=== PATIENT | female | born 1960 | race American Indian/Alaskan Native ===

== ENCOUNTER 2017-01-16 23:18 | Emergency (ER) | payer MEDICAID ==
[2017-01-16 23:12] LABS: CHLORIDE,CL 94 mmol/L (101-111); SODIUM,NA 130 mmol/L (135-145)
[~2017-01-16 23:18] MED LIST: LORazepam 1 MG Tab PO ONE
--- NOTE | 2017-01-16 23:19 | EDM.PDOC ---
ED HPI GENERAL MEDICAL PROBLEM - General Chief Complaint: Chest Pain Stated Complaint: AMBULANCE Time Seen by Provider: 01/16/17 23:00 Source of Information: Reports: Patient History Limitations: Reports: No Limitations - History of Present Illness INITIAL COMMENTS - FREE TEXT/NARRATIVE: This 56 yo female patient was brought to the ED by [facility] due to a 2 day history of chest pain. The patient reports her pain is no longer present, but she has been worrying about it since yesterday. EMS reports that the patient has been coughing up green phlegm over the past several days. The patient reports she has not been able to sleep due to worrying about her chest pain. The patient reports no history of cardiac problems. The patient denies any drug or alcohol use. Onset Date: 01/15/17 Duration: Waxing/Waning Location: Reports: Chest Quality: Reports: Ache, Dull Severity: Moderate Improves with: Reports: None Worsens with: Reports: Medication Associated Symptoms: Reports: Cough Anterior Chest Pain Score (Numeric/FACES): 8 - Related Data Allergies Allergy/AdvReac Type Severity Reaction Status Date / Time No Known Allergies Allergy Verified 01/16/17 22:50 Home Meds: Home Meds . 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" - Past Surgical History GI Surgical History: Reports: Cholecystectomy Social & Family History - Family History Family Medical History: Noncontributory - Tobacco Use Smoking Status *Q: Former Smoker Years of Tobacco use: 2 Packs/Tins Daily: 0.1 Used Tobacco, but Quit: Yes Month Tobacco Last Used: sep Second Hand Smoke Exposure: No - Alcohol Use Days Per Week of Alcohol Use: 2 Number of Drinks Per Day: 6 Total Drinks Per Week: 12 - Recreational Drug Use Recreational Drug Use: No Drug Use in Last 12 Months: No - Living Situation & Occupation Living situation: Reports: with Family Occupation: Unemployed ED ROS GENERAL - Review of Systems Review Of Systems: ROS reveals no pertinent complaints other than HPI. ED EXAM, GENERAL - Physical Exam Exam: See Below Exam Limited By: No Limitations General Appearance: Alert, WD/WN, Anxious, Moderate Distress, Thin Eye Exam: Bilateral Eye: EOMI, Normal Inspection, PERRL Ears: Normal External Exam, Normal Canal, Hearing Grossly Normal, Normal TMs Nose: Normal Inspection, Normal Mucosa, No Blood Throat/Mouth: Normal Lips, Normal Gums, Normal Oropharynx, Normal Voice, No Airway Compromise, Other (multiple dental caries) Head: Atraumatic, Normocephalic Neck: Normal Inspection, Supple, Non-Tender, Full Range of Motion Respiratory/Chest: No Respiratory Distress, Lungs Clear, Normal Breath Sounds, No Accessory Muscle Use, Chest Non-Tender Cardiovascular: Normal Peripheral Pulses, Regular Rate, Rhythm, No Edema, No Gallop, No JVD, No Murmur, No Rub GI/Abdominal: Normal Bowel Sounds, Soft, Non-Tender, No Organomegaly, No Distention, No Abnormal Bruit, No Mass (Female) Exam: Deferred Rectal (Female) Exam: Deferred Back Exam: Normal Inspection, Full Range of Motion, NT Extremities: Normal Inspection, Normal Range of Motion, Non-Tender, Normal Capillary Refill, No Pedal Edema Neurological: Alert, Oriented, CN II-XII Intact, Normal Cognition, Normal Gait, Normal Reflexes, No Motor/Sensory Deficits Psychiatric: Normal Affect, Normal Mood Skin Exam: Warm, Dry, Intact, Normal Color, No Rash Lymphatic: No Adenopathy Course - Vital Signs Last Recorded V/S: Last Vital Signs Temp 36.8 C 01/16/17 23:19 Pulse 90 01/16/17 23:19 Resp 13 01/16/17 23:19 BP 142/80 H 01/16/17 23:25 Pulse Ox 100 01/16/17 23:19 - Orders/Labs/Meds Orders: Active Orders 24 hr Category Date Time Status EKG Documentation Completion [RC] URGENT Care 01/16/17 22:36 Ordered Labs: Laboratory Tests 01/16/17 01/16/17 01/16/17 Range/Units 22:47 22:47 22:55 WBC 4.6 L (5.0-10.0) 10^3/uL RBC 4.87 (4.2-5.4) 10^6/uL Hgb 15.1 (12.0-16.0) g/dL Hct 43.9 (37.0-47.0) % MCV 90.1 (80-100) fL MCH 31.0 (27.0-34.0) pg MCHC 34.4 (33.0-35.0) g/dL Plt Count 58 L (150-450) 10^3/uL Neut % (Auto) 75.0 (42.2-75.2) % Lymph % (Auto) 8.9 L (20.5-50.1) % [place] % (Auto) 15.2 H (2-8) % Eos % (Auto) 0.7 L (1.0-3.0) % Baso % (Auto) 0.2 (0.0-1.0) % Sodium 130 L (135-145) mmol/L Potassium 3.5 L (3.6-5.0) mmol/L Chloride 94 L (101-111) mmol/L Carbon Dioxide 25.0 (21.0-31.0) mmol/L Anion Gap 14.5 BUN 9 (7-18) mg/dL Creatinine 0.5 L (0.6-1.3) mg/dL Est Cr Clr Drug Dosing 101.73 mL/min Estimated GFR (MDRD) > 60 BUN/Creatinine Ratio 18.00 Glucose 134 H (74-105) mg/dL Calcium 9.4 (8.4-10.2) mg/dl Total Bilirubin 0.9 (0.2-1.0) mg/dL AST 92 H (10-42) IU/L ALT 94 H (10-60) IU/L Alkaline Phosphatase 85 (42-121) IU/L Troponin I < 0.02 (0.00-0.02) ng/ml Total Protein 7.7 (6.7-8.2) g/dl Albumin 4.4 (3.2-5.5) g/dl Globulin 3.3 Albumin/Globulin Ratio 1.33 Urine Color Yellow (YELLOW) Urine Appearance Slightly cloudy (CLEAR) Urine pH 7.0 (5.0-9.0) Ur Specific [place] 1.015 (1.005-1.030) Urine Protein 30 H (NEGATIVE) Urine Glucose (UA) Negative (NEGATIVE) Urine Ketones 15 H (NEGATIVE) Urine Occult Blood Moderate H (NEGATIVE) Urine Nitrite Negative (NEGATIVE) Urine Bilirubin Small H (NEGATIVE) Urine Urobilinogen 1.0 (0.2-1.0) mg/dL Ur Leukocyte Esterase Moderate H (NEGATIVE) Urine RBC 10-20 H /HPF Urine WBC >100 H (0-5/HPF) /HPF Ur Epithelial Cells Many H /HPF Urine Bacteria Few (0-FEW/HPF) /HPF Urine Mucus Few H /LPF Urine Other See note Meds: Medications Discontinued Medications Generic Name Dose Route Start Last Admin Trade Name Freq PRN Reason Stop Dose Admin Amoxicillin/Clavulanate Potassium 1 tab 01/16/17 23:28 Augmentin 500 Mg\\125 Mg PO 01/16/17 23:29 ONETIME ONE Lorazepam 1 mg 01/16/17 23:14 01/16/17 23:19 Ativan PO 01/16/17 23:15 1 mg ONETIME ONE Administration Departure - Departure Time of Disposition: 23:30 Disposition: Home, Self-Care 01 Condition: Fair Clinical Impression: Anxiety UTI (urinary tract infection) Qualifiers: Urinary tract infection type: site unspecified Hematuria presence: with hematuria Qualified Code(s): N39.0 - Urinary tract infection, site not specified ; R31.9 - Hematuria, unspecified; R31.9 - Hematuria, unspecified URI (upper respiratory infection) Qualifiers: URI type: unspecified URI Qualified Code(s): J06.9 - Acute upper respiratory infection, unspecified Instructions: Panic Attacks, Upper Respiratory Infection, Adult, [id number], Urinary Tract Infection, Adult, [id number] Forms: ED Department Discharge Care Plan Goals: The patient was advised of the examination, lab, x-ray and EKG results during the visit. The patient was given an oral dose of Ativan and Augmentin while in the ED. The patient was discharged with a script for Augmentin (500/125) to take 1 by mouth 2 times per day for 10 days. If the patient has any additional symptoms or concerns, the patient should follow-up with her primary care facility or return to the emergency department. - My Orders Last 24 Hours: My Active Orders 01/16/17 22:36 EKG Documentation Completion [RC] URGENT - Assessment/Plan Last 24 Hours: My Active Orders 01/16/17 22:36 EKG Documentation Completion [RC] URGENT
[2017-01-16 23:26] VITALS: BP 142/80
[2017-01-16] MEDS ORDERED: Amoxicillin/Clavulanate K 500-125 MG Tab PO ONE (23:28)
--- NOTE | 2017-01-18 11:50 | EKG ---
01/16/2017- JONATHAN WASSERMAN - FINDINGS: EKG, per my reading, shows sinus rhythm at the rate of 94 with a left anterior fascicular block. [facility] /[id number]
== END 2017-01-16 23:41 | disposition home or self-care (01) ==
LOC: DL.ED 23:18
DX: F41.9 Anxiety disorder, unspecified (principal); N39.0 Urinary tract infection, site not specified; R31.9 Hematuria, unspecified; J06.9 Acute upper respiratory infection, unspecified; Z87.891 Personal history of nicotine dependence
CPT/HCPCS: 36415; 71020; 80053; 81001; 84484; 85025; 93005; 99285; A9270

== ENCOUNTER 2017-01-18 12:01 | Emergency (ER) | payer MEDICAID ==
[2017-01-18 12:06] VITALS: BP 100/75
--- NOTE | 2017-01-18 12:16 | EDM.PDOCBH ---
ED HPI GENERAL MEDICAL PROBLEM - General Chief Complaint: Neuro Symptoms/Deficits Stated Complaint: IN BY AMBULANCE Time Seen by Provider: 01/18/17 12:15 Source of Information: Reports: Patient, EMS, Old Records, RN, RN Notes Reviewed , Other (Nurse Carbajal @ [facility], Meenakshi Banerjee @ [facility] ([phone])) History Limitations: Reports: Altered Mental Status (apparent active mental illness) - History of Present Illness INITIAL COMMENTS - FREE TEXT/NARRATIVE: Arrives from home by ambulance with c/o "unable to sleep for 2 or 3 nights". Pt states she was seen here a few days ago because she "was scared at home and had some chest pain". At that ER visit she received one dose of Ativan 1mg po, and she thinks that the Ativan is having a strange effect on her that it never has in past. She states that it is causing her to have really bad fear which makes it impossible to sleep. She states that strange men keep popping their heads out peeking at her in her house, and also shadows in her house have been moving into shapes and scaring her. She denies any auditory hallucinations and states that none of the peeking heads have spoke, and she hears no other voices. She denies suicidal thoughts or plan. She denies any recent use of alcohol or drugs. She has not been following with anyone for medical or psychiatric care, or with behavioral health. She currently has no active prescriptions. Onset: Unknown/Unsure Duration: Chronic Improves with: Reports: None Worsens with: Reports: None Associated Symptoms: Reports: No Other Symptoms - Related Data Allergies Allergy/AdvReac Type Severity Reaction Status Date / Time No Known Allergies Allergy Verified 01/18/17 12:03 Home Meds: Home Meds . 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" - Past Surgical History GI Surgical History: Reports: Cholecystectomy Social & Family History - Family History Family Medical History: Noncontributory - Tobacco Use Smoking Status *Q: Never Smoker Years of Tobacco use: 2 Packs/Tins Daily: 0.1 Used Tobacco, but Quit: Yes Month Tobacco Last Used: sep Second Hand Smoke Exposure: No - Caffeine Use Caffeine Use: Reports: Coffee - Alcohol Use Days Per Week of Alcohol Use: 2 Number of Drinks Per Day: 6 Total Drinks Per Week: 12 - Recreational Drug Use Recreational Drug Use: No Drug Use in Last 12 Months: No - Living Situation & Occupation Living situation: Reports: Single, with Family Occupation: Unemployed ED ROS GENERAL - Review of Systems Review Of Systems: ROS reveals no pertinent complaints other than HPI. ED EXAM, BEHAVIORAL HEALTH - Physical Exam Exam: See Below Exam Limited By: No Limitations General Appearance: Alert, WD/WN, No Apparent Distress, Anxious Eye Exam: Bilateral Eye: EOMI, Normal Inspection, PERRL Ears: Normal External Exam, Hearing Grossly Normal Nose: Normal Inspection, Normal Mucosa, No Blood Throat/Mouth: Normal Lips, Normal Oropharynx, Normal Voice, No Airway Compromise , Other (chronically poor dental condition with extensive decay and several missing teeth) Head: Atraumatic, Normocephalic Neck: Normal Inspection Respiratory/Chest: No Respiratory Distress, Lungs Clear, Normal Breath Sounds, No Accessory Muscle Use, Chest Non-Tender Cardiovascular: Normal Peripheral Pulses, Regular Rate, Rhythm, No Edema, No Gallop, No JVD, No Murmur, No Rub GI/Abdominal: Normal Bowel Sounds, Soft, Non-Tender, No Distention, No Abnormal Bruit (Female) Exam: Deferred Rectal (Female) Exam: Deferred Back Exam: Normal Inspection Extremities: Normal Inspection Neurological: Alert, CN II-XII Intact, Normal Gait, No Motor/Sensory Deficits, Other (Oriented to person, place, and month) Psychiatric: Flat Affect, Visual Hallucinations. No: Homicidal Thoughts, Phobic , Christianity Delusions, Suicidal Thoughts, Auditory Hallucinations, Grandiose Thoughts, Paranoid Thoughts Skin Exam: Warm, Dry, Intact, Normal color, No rash COURSE, BEHAVIORAL HEALTH COMP - Course Vital Signs: Last Vital Signs Temp 36.6 C 01/18/17 12:03 Pulse 97 01/18/17 12:03 Resp 16 01/18/17 12:03 BP 100/75 01/18/17 12:03 Pulse Ox 98 01/18/17 12:03 Orders, Labs, Meds: Active Orders 24 hr Category Date Time Status QUEtiapine [SEROquel] Med 01/18/17 14:47 Once 25 mg PO ONETIME ONE Laboratory Tests 01/18/17 01/18/17 01/18/17 Range/Units 12:22 12:22 12:32 WBC 7.5 (5.0-10.0) 10^3/uL RBC 5.37 (4.2-5.4) 10^6/uL Hgb 16.4 H (12.0-16.0) g/dL Hct 48.1 H (37.0-47.0) % MCV 89.6 (80-100) fL MCH 30.5 (27.0-34.0) pg MCHC 34.1 (33.0-35.0) g/dL Plt Count 88 L (150-450) 10^3/uL Neut % (Auto) 70.5 (42.2-75.2) % Lymph % (Auto) 12.1 L (20.5-50.1) % [place] % (Auto) 16.6 H (2-8) % Eos % (Auto) 0.5 L (1.0-3.0) % Baso % (Auto) 0.3 (0.0-1.0) % Sodium (135-145) mmol/L Potassium (3.6-5.0) mmol/L Chloride (101-111) mmol/L Carbon Dioxide (21.0-31.0) mmol/L Anion Gap BUN (7-18) mg/dL Creatinine (0.6-1.3) mg/dL Est Cr Clr Drug Dosing mL/min Estimated GFR (MDRD) BUN/Creatinine Ratio Glucose (74-105) mg/dL Calcium (8.4-10.2) mg/dl Magnesium (1.8-2.5) mg/dL Total Bilirubin (0.2-1.0) mg/dL AST (10-42) IU/L ALT (10-60) IU/L Alkaline Phosphatase (42-121) IU/L Total Protein (6.7-8.2) g/dl Albumin (3.2-5.5) g/dl Globulin Albumin/Globulin Ratio TSH, Ultra Sensitive (0.45-5.33) uIu/mL Urine Color Yellow (YELLOW) Urine Appearance Clear (CLEAR) Urine pH 7.0 (5.0-9.0) Ur Specific [place] <= 1.005 (1.005-1.030) Urine Protein Negative (NEGATIVE) Urine Glucose (UA) Negative (NEGATIVE) Urine Ketones Negative (NEGATIVE) Urine Occult Blood Moderate H (NEGATIVE) Urine Nitrite Negative (NEGATIVE) Urine Bilirubin Negative (NEGATIVE) Urine Urobilinogen 1.0 (0.2-1.0) mg/dL Ur Leukocyte Esterase Small H (NEGATIVE) Urine RBC 0-5 /HPF Urine WBC 5-10 H (0-5/HPF) /HPF Ur Epithelial Cells Few /HPF Urine Bacteria Few (0-FEW/HPF) /HPF Urine Mucus Few H /LPF Salicylates Urine Opiates Screen Negative (NEGATIVE) Ur Oxycodone Screen Negative (NEGATIVE) Urine Methadone Screen Negative (NEGATIVE) Acetaminophen Ur Barbiturates Screen Negative (NEGATIVE) U Tricyclic Antidepress Negative (NEGATIVE) Ur Phencyclidine Scrn Negative (NEGATIVE) Ur Amphetamine Screen Negative (NEGATIVE) U Methamphetamines Scrn Negative (NEGATIVE) Urine MDMA Screen Negative (NEGATIVE) U Benzodiazepines Scrn Positive H (NEGATIVE) Urine Cocaine Screen Negative (NEGATIVE) U Marijuana (THC) Screen Negative (NEGATIVE) Ethyl Alcohol mg/dL 01/18/17 01/18/17 Range/Units 12:32 12:32 WBC (5.0-10.0) 10^3/uL RBC (4.2-5.4) 10^6/uL Hgb (12.0-16.0) g/dL Hct (37.0-47.0) % MCV (80-100) fL MCH (27.0-34.0) pg MCHC (33.0-35.0) g/dL Plt Count (150-450) 10^3/uL Neut % (Auto) (42.2-75.2) % Lymph % (Auto) (20.5-50.1) % [place] % (Auto) (2-8) % Eos % (Auto) (1.0-3.0) % Baso % (Auto) (0.0-1.0) % Sodium 132 L (135-145) mmol/L Potassium 3.1 L (3.6-5.0) mmol/L Chloride 98 L (101-111) mmol/L Carbon Dioxide 20.0 L (21.0-31.0) mmol/L Anion Gap 17.1 BUN 10 (7-18) mg/dL Creatinine 0.7 (0.6-1.3) mg/dL Est Cr Clr Drug Dosing 72.66 mL/min Estimated GFR (MDRD) > 60 BUN/Creatinine Ratio 14.28 Glucose 115 H (74-105) mg/dL Calcium 9.5 (8.4-10.2) mg/dl Magnesium 1.6 L (1.8-2.5) mg/dL Total Bilirubin 1.3 H (0.2-1.0) mg/dL AST 92 H (10-42) IU/L ALT 84 H (10-60) IU/L Alkaline Phosphatase 81 (42-121) IU/L Total Protein 7.7 (6.7-8.2) g/dl Albumin 4.4 (3.2-5.5) g/dl Globulin 3.3 Albumin/Globulin Ratio 1.33 TSH, Ultra Sensitive 4.71 (0.45-5.33) uIu/mL Urine Color (YELLOW) Urine Appearance (CLEAR) Urine pH (5.0-9.0) Ur Specific [place] (1.005-1.030) Urine Protein (NEGATIVE) Urine Glucose (UA) (NEGATIVE) Urine Ketones (NEGATIVE) Urine Occult Blood (NEGATIVE) Urine Nitrite (NEGATIVE) Urine Bilirubin (NEGATIVE) Urine Urobilinogen (0.2-1.0) mg/dL Ur Leukocyte Esterase (NEGATIVE) Urine RBC /HPF Urine WBC (0-5/HPF) /HPF Ur Epithelial Cells /HPF Urine Bacteria (0-FEW/HPF) /HPF Urine Mucus /LPF Salicylates < 4 Urine Opiates Screen (NEGATIVE) Ur Oxycodone Screen (NEGATIVE) Urine Methadone Screen (NEGATIVE) Acetaminophen < 10 Ur Barbiturates Screen (NEGATIVE) U Tricyclic Antidepress (NEGATIVE) Ur Phencyclidine Scrn (NEGATIVE) Ur Amphetamine Screen (NEGATIVE) U Methamphetamines Scrn (NEGATIVE) Urine MDMA Screen (NEGATIVE) U Benzodiazepines Scrn (NEGATIVE) Urine Cocaine Screen (NEGATIVE) U Marijuana (THC) Screen (NEGATIVE) Ethyl Alcohol < 5 mg/dL Re-Assessment/Re-Exam: I contacted [facility] and spoke to Raven, a nurse, who was able to confirm that the pt has not been established with a medical provider for over two years, and has no active prescriptions. I contacted Meenakshi Chriss at [facility]. She was able to confirm that the pt had been referred to their clinic several times in the past by other agencies or clinics, but the pt never attended any of the intake appointments, and all efforts to reach out to the pt failed because the phone numbers given for the pt were always incorrect or disconnected, and she was never residing at the addresses listed. Medical Clearance: 01/18/17 13:00 Pt medically clear for mental health evaluation. Discharge vs Psych Eval/Treatment:: 01/18/17 14:48 Mitzi Temple from [facility] evaluates pt in ER room #4 and also interviews 2 of pt's sisters via phone. Pt in not felt to be a danger to herself of others, and her sister is willing to come get her from the ER and ensure that she follows up tomorrow for intake at the [facility]. Pt will pt started on Seroquel 25mg qAM and 50mg qHS at this time until medical management can begin later this week. Departure - Departure Time of Disposition: 14:51 Disposition: Home, Self-Care 01 Condition: Fair Clinical Impression: Anxiety, Psychotic disorder Insomnia Qualifiers: Insomnia type: psychophysiologic Qualified Code(s): F51.04 - Psychophysiologic insomnia - Discharge Information Instructions: Insomnia, Psychosis Forms: ED Department Discharge Additional Instructions: Rx: Seroquel 25mg: Take one tablet every morning and two tablets every night at bedtime. Follow up tomorrow for intake at the [facility]: [phone] - My Orders Last 24 Hours: My Active Orders 01/18/17 14:47 QUEtiapine [SEROquel] 25 mg PO ONETIME ONE - Assessment/Plan Last 24 Hours: My Active Orders 01/18/17 14:47 QUEtiapine [SEROquel] 25 mg PO ONETIME ONE
[2017-01-18 12:58] LABS: CHLORIDE,CL 98 mmol/L (101-111); SODIUM,NA 132 mmol/L (135-145)
[2017-01-18 13:00] LABS: ACETAMINOPHEN < 10
[2017-01-18] MEDS ORDERED: QUEtiapine 25 MG Tab PO ONE (14:47)
== END 2017-01-18 15:12 | disposition home or self-care (01) ==
LOC: DL.ED 12:01
DX: F29 Unspecified psychosis not due to a substance or known physiological condition (principal); F41.9 Anxiety disorder, unspecified; F51.04 Psychophysiologic insomnia; K02.9 Dental caries, unspecified; Z87.891 Personal history of nicotine dependence
CPT/HCPCS: 36415; 80053; 80305; 81001; 83735; 84443; 85025; 99285; G0480

== ENCOUNTER 2017-03-24 15:35 | Emergency (ER) | payer MEDICAID | END 2017-03-24 17:15 | disposition left against medical advice (07) | LOC: DL.ED 15:35 | DX: Z53.21 Procedure and treatment not carried out due to patient leaving prior to being seen by health care provider (principal) ==

== ENCOUNTER 2017-07-24 06:01 | Emergency (ER) | payer MEDICAID ==
[2017-07-24 06:24] VITALS: BP 150/93
--- NOTE | 2017-07-24 06:50 | EDM.PDOCBH ---
<AleshaJabari Chavis - Last Filed: 07/24/17 06:40> ED HPI GENERAL MEDICAL PROBLEM - General Chief Complaint: Behavioral/Psych Stated Complaint: IN BY AMBULANCE Time Seen by Provider: 07/24/17 06:35 Source of Information: Reports: Patient History Limitations: Reports: No Limitations - History of Present Illness INITIAL COMMENTS - FREE TEXT/NARRATIVE: This 57 yo female patient reports to the ED due to 1) not sleeping for the past several days, 2) not having any medications for sleep, 3) feeling very anxious and 4) having auditory hallucinations. The patient reports that she has not followed up with the [facility] since May. The patient reports that she returned her Trazadone and was supposed to have a dose change, but they (the [facility] could not call her because she does not have a phone. The patient reports that she has not called them, but did not have a reason why. The patient reports that she called the ambulance today, because the voices were getting louder. The patient reports the voices were telling her that they were going to harm her. Onset: Gradual Duration: Day(s):, Constant, Getting Worse Location: Reports: Generalized Quality: Reports: Other Severity: Moderate Improves with: Reports: None Worsens with: Reports: None Context: Reports: Other Associated Symptoms: Reports: No Other Symptoms - Related Data Allergies Allergy/AdvReac Type Severity Reaction Status Date / Time No Known Allergies Allergy Verified 07/24/17 06:24 Home Meds: Home Meds Naproxen 250 mg PO BID 07/24/17 [History] traZODone HCl [Trazodone HCl] 25 mg PO DAILY 07/24/17 [History] Past Medical History - Past Health History Medical/Surgical History: Denies Medical/Surgical History HEENT History: Reports: Impaired Vision Other HEENT History: multiple broken and missing teeth SCALE AGENT History: Reports: Musculoskeletal History: Reports: Arthritis Psychiatric History: Reports: Anxiety, Depression, Other (See Below) Other Psychiatric History: insomnia Other Endocrine/Metabolic History: said "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" - Past Surgical History GI Surgical History: Reports: Cholecystectomy Social & Family History - Family History Family Medical History: Noncontributory - Tobacco Use Smoking Status *Q: Current Some Day Smoker Years of Tobacco use: 35 Packs/Tins Daily: 7 - Caffeine Use Caffeine Use: Reports: Coffee - Alcohol Use Date of Last Drink: 07/09/17 - Recreational Drug Use Recreational Drug Use: Yes - Living Situation & Occupation Living situation: Reports: Single, with Family Occupation: Unemployed ED ROS GENERAL - Review of Systems Review Of Systems: ROS reveals no pertinent complaints other than HPI. ED EXAM, BEHAVIORAL HEALTH - Physical Exam Exam: See Below Exam Limited By: No Limitations General Appearance: Alert, WD/WN, Anxious, Moderate Distress Eye Exam: Bilateral Eye: EOMI, Normal Inspection, PERRL Ears: Normal External Exam, Normal Canal, Hearing Grossly Normal, Normal TMs Nose: Normal Inspection, Normal Mucosa, No Blood Throat/Mouth: Normal Inspection, Normal Lips, Normal Teeth, Normal Gums, Normal Oropharynx, Normal Voice, No Airway Compromise Head: Atraumatic, Normocephalic Neck: Normal Inspection, Supple, Non-Tender, Full Range of Motion Respiratory/Chest: No Respiratory Distress, Lungs Clear, Normal Breath Sounds, No Accessory Muscle Use, Chest Non-Tender Cardiovascular: Normal Peripheral Pulses, Regular Rate, Rhythm, No Edema, No Gallop, No JVD, No Murmur, No Rub GI/Abdominal: Normal Bowel Sounds, Soft, Non-Tender, No Organomegaly, No Distention, No Abnormal Bruit, No Mass (Female) Exam: Deferred Rectal (Female) Exam: Deferred Back Exam: Normal Inspection, Full Range of Motion, NT Extremities: Normal Inspection, Normal Range of Motion, Non-Tender, Normal Capillary Refill, No Pedal Edema Neurological: Alert, CN II-XII Intact, No Motor/Sensory Deficits, Oriented x 3 Psychiatric: Alert, Inattentive, Auditory Hallucinations Skin Exam: Warm, Dry, Intact, Normal color, No rash COURSE, BEHAVIORAL HEALTH COMP - Course Vital Signs: Last Vital Signs Temp 37.4 C 07/24/17 06:11 Pulse 78 07/24/17 06:11 Resp 19 07/24/17 06:11 BP 150/93 H 07/24/17 06:11 Pulse Ox 98 07/24/17 06:11 Orders, Labs, Meds: Active Orders 24 hr Category Date Time Status CULTURE URINE [RM] Stat Lab 07/24/17 06:06 Received DRUG SCREEN URINE BIORAD [URCHEM] Stat Lab 07/24/17 06:06 Ordered Laboratory Tests 07/24/17 07/24/17 07/24/17 Range/Units 06:06 06:06 06:50 WBC 7.6 (5.0-10.0) 10^3/uL RBC 4.38 (4.2-5.4) 10^6/uL Hgb 13.4 D (12.0-16.0) g/dL Hct 38.8 (37.0-47.0) % MCV 88.6 (80-100) fL MCH 30.6 (27.0-34.0) pg MCHC 34.5 (33.0-35.0) g/dL Plt Count 113 L (150-450) 10^3/uL Neut % (Auto) 80.4 H (42.2-75.2) % Lymph % (Auto) 10.7 L (20.5-50.1) % Dim[place] % (Auto) 8.7 H (2-8) % Eos % (Auto) 0.1 L (1.0-3.0) % Baso % (Auto) 0.1 (0.0-1.0) % Sodium (135-145) mmol/L Potassium (3.6-5.0) mmol/L Chloride (101-111) mmol/L Carbon Dioxide (21.0-31.0) mmol/L Anion Gap BUN (7-18) mg/dL Creatinine (0.6-1.3) mg/dL Est Cr Clr Drug Dosing mL/min Estimated GFR (MDRD) BUN/Creatinine Ratio Glucose (74-105) mg/dL Calcium (8.4-10.2) mg/dl Total Bilirubin (0.2-1.0) mg/dL AST (10-42) IU/L ALT (10-60) IU/L Alkaline Phosphatase (42-121) IU/L Total Protein (6.7-8.2) g/dl Albumin (3.2-5.5) g/dl Globulin Albumin/Globulin Ratio Urine Color Yellow (YELLOW) Urine Appearance Slightly cloudy (CLEAR) Urine pH 7.0 (5.0-9.0) Ur Specific Buchanan 1.010 (1.005-1.030) Urine Protein Negative (NEGATIVE) Urine Glucose (UA) Negative (NEGATIVE) Urine Ketones 15 H (NEGATIVE) Urine Occult Blood Small H (NEGATIVE) Urine Nitrite Negative (NEGATIVE) Urine Bilirubin Negative (NEGATIVE) Urine Urobilinogen 1.0 (0.2-1.0) mg/dL Ur Leukocyte Esterase Moderate H (NEGATIVE) Urine RBC 5-10 H /HPF Urine WBC 20-30 H (0-5/HPF) /HPF Ur Epithelial Cells Few /HPF Amorphous Sediment Few (0/HPF) /HPF Urine Bacteria Moderate H (0-FEW/HPF) /HPF Urine Mucus Rare /LPF Urinalysis Comment Salicylates Urine Opiates Screen Negative (NEGATIVE) Ur Oxycodone Screen Negative (NEGATIVE) Urine Methadone Screen Negative (NEGATIVE) Acetaminophen Ur Barbiturates Screen Negative (NEGATIVE) U Tricyclic Antidepress Negative (NEGATIVE) Ur Phencyclidine Scrn Negative (NEGATIVE) Ur Amphetamine Screen Negative (NEGATIVE) U Methamphetamines Scrn Negative (NEGATIVE) Urine MDMA Screen Negative (NEGATIVE) U Benzodiazepines Scrn Negative (NEGATIVE) Urine Cocaine Screen Negative (NEGATIVE) U Marijuana (THC) Screen Negative (NEGATIVE) Ethyl Alcohol mg/dL 07/24/17 Range/Units 06:50 WBC (5.0-10.0) 10^3/uL RBC (4.2-5.4) 10^6/uL Hgb (12.0-16.0) g/dL Hct (37.0-47.0) % MCV (80-100) fL MCH (27.0-34.0) pg MCHC (33.0-35.0) g/dL Plt Count (150-450) 10^3/uL Neut % (Auto) (42.2-75.2) % Lymph % (Auto) (20.5-50.1) % Dimmit % (Auto) (2-8) % Eos % (Auto) (1.0-3.0) % Baso % (Auto) (0.0-1.0) % Sodium 134 L (135-145) mmol/L Potassium 2.7 L (3.6-5.0) mmol/L Chloride 101 (101-111) mmol/L Carbon Dioxide 22.0 (21.0-31.0) mmol/L Anion Gap 13.7 BUN 9 (7-18) mg/dL Creatinine 0.6 (0.6-1.3) mg/dL Est Cr Clr Drug Dosing 83.79 mL/min Estimated GFR (MDRD) > 60 BUN/Creatinine Ratio 15.00 Glucose 98 (74-105) mg/dL Calcium 8.9 (8.4-10.2) mg/dl Total Bilirubin 1.2 H (0.2-1.0) mg/dL AST 20 (10-42) IU/L ALT 16 (10-60) IU/L Alkaline Phosphatase 88 (42-121) IU/L Total Protein 7.4 (6.7-8.2) g/dl Albumin 4.2 (3.2-5.5) g/dl Globulin 3.2 Albumin/Globulin Ratio 1.31 Urine Color (YELLOW) Urine Appearance (CLEAR) Urine pH (5.0-9.0) Ur Specific Buchanan (1.005-1.030) Urine Protein (NEGATIVE) Urine Glucose (UA) (NEGATIVE) Urine Ketones (NEGATIVE) Urine Occult Blood (NEGATIVE) Urine Nitrite (NEGATIVE) Urine Bilirubin (NEGATIVE) Urine Urobilinogen (0.2-1.0) mg/dL Ur Leukocyte Esterase (NEGATIVE) Urine RBC /HPF Urine WBC (0-5/HPF) /HPF Ur Epithelial Cells /HPF Amorphous Sediment (0/HPF) /HPF Urine Bacteria (0-FEW/HPF) /HPF Urine Mucus /LPF Urinalysis Comment Salicylates < 4 Urine Opiates Screen (NEGATIVE) Ur Oxycodone Screen (NEGATIVE) Urine Methadone Screen (NEGATIVE) Acetaminophen < 10 Ur Barbiturates Screen (NEGATIVE) U Tricyclic Antidepress (NEGATIVE) Ur Phencyclidine Scrn (NEGATIVE) Ur Amphetamine Screen (NEGATIVE) U Methamphetamines Scrn (NEGATIVE) Urine MDMA Screen (NEGATIVE) U Benzodiazepines Scrn (NEGATIVE) Urine Cocaine Screen (NEGATIVE) U Marijuana (THC) Screen (NEGATIVE) Ethyl Alcohol < 5 mg/dL Medications Discontinued Medications Generic Name Dose Route Start Last Admin Trade Name Jeevanq PRN Reason Stop Dose Admin Ciprofloxacin 500 mg 07/24/17 09:05 07/24/17 09:14 Ciprofloxacin Hcl PO 07/24/17 09:06 500 mg ONETIME ONE Administration Potassium Chloride 40 meq 07/24/17 09:04 07/24/17 09:14 Klor-Con 10 PO 07/24/17 09:05 40 meq ONETIME ONE Administration Departure - Departure Disposition: Home, Self-Care 01 Clinical Impression: Hallucinations, Psychotic disorder, Anxiety, Alcohol abuse, Hypokalemia UTI (urinary tract infection) Qualifiers: Urinary tract infection type: site unspecified Hematuria presence: without hematuria Qualified Code(s): N39.0 - Urinary tract infection, site not specified - Discharge Information Instructions: Psychosis, Urinary Tract Infection, Adult, [id number], Alcohol Use Disorder, Hypokalemia Forms: ED Department Discharge Additional Instructions: Rx: Cipro 500mg Rx: Potassium Chloride 20mEq Follow up tomorrow, July 25 at 10:00AM at the [facility]. Follow up in clinic in 4 to 5 days for potassium and urine recheck. Do not drink alcohol. - My Orders Last 24 Hours: My Active Orders 07/24/17 06:06 CULTURE URINE [RM] Stat - Assessment/Plan Last 24 Hours: My Active Orders 07/24/17 06:06 CULTURE URINE [RM] Stat <Nicholas Broussard - Last Filed: 07/24/17 10:00> ED EXAM, BEHAVIORAL HEALTH - Physical Exam Text/Narrative:: No changes to exam as documented by Jabari ROJAS for this encounter. COURSE, BEHAVIORAL HEALTH COMP - Course Medical Clearance: 07/24/17 08:00 No medical contraindication to being in mental health facility at this time. Discharge vs Psych Eval/Treatment:: 07/24/17 09:52 Mitzi Temple evaluted the pt in ER room #2 and has spoke with pt's family, and finds the pt is safe to be d/c'd home with family and have outpt. mental health evaluation tomorrow at 10AM at [facility] [place]. Departure - Departure Time of Disposition: 09:54 Condition: Fair
[2017-07-24 07:18] LABS: ANION GAP 13.7; CHLORIDE,CL 101 mmol/L (101-111); SODIUM,NA 134 mmol/L (135-145)
[2017-07-24 07:26] LABS: ACETAMINOPHEN < 10
[2017-07-24] MEDS ORDERED: Potassium Chloride 10 MEQ Tab.ER PO ONE (09:04)
[2017-07-24] MEDS ORDERED: Ciprofloxacin 500 MG Tab PO ONE (09:05)
== END 2017-07-24 10:10 | disposition home or self-care (01) ==
LOC: DL.ED 06:01
DX: F41.9 Anxiety disorder, unspecified (principal); F29 Unspecified psychosis not due to a substance or known physiological condition; E87.6 Hypokalemia; N39.0 Urinary tract infection, site not specified; F10.10 Alcohol abuse, uncomplicated; F17.210 Nicotine dependence, cigarettes, uncomplicated
CPT/HCPCS: 36415; 80053; 80305; 81001; 85025; 87086; 99285; A9270; G0480; 87088; 87186